=== PATIENT | male | born 1985 | race Asian ===

== ENCOUNTER 2023-04-28 04:44 | Emergency (ER) | payer OTHER ==
[~2023-04-28] VITALS: Ht 182.9 cm; Wt 122.5 kg
== END 2023-04-28 05:43 | disposition home or self-care (01) ==
LOC: ED 04:44
DX: M54.50 Low back pain, unspecified (principal); M62.830 Muscle spasm of back
CPT/HCPCS: 81000; 99282; J1885; J2360